=== PATIENT | female | born 1945 | race Caucasian/White ===

== ENCOUNTER 2017-07-24 18:30 | Emergency (ER) | payer MEDICARE, SELFPAY ==
[2017-07-24] VITALS (8 sets, daily range): BP systolic 104–140; BP diastolic 65–109; PULSE 102–116; RESP 16–20; TEMP 37.2–37.3; O2SAT 91–97; BMI 38.7
--- NOTE | 2017-07-24 18:40 | NURSING ---
RN CALLED FOR EKG, PULLED OLD EKG'S FOR
--- NOTE | 2017-07-24 18:49 | EKG12_ITS ---
Test Reason : CP Blood Pressure : / mmHG Vent. Rate : 111 BPM Atrial Rate : 111 BPM P-R Int : 144 ms QRS Dur : 088 ms QT Int : 314 ms P-R-T Axes : 073 -56 054 degrees QTc Int : 427 ms Sinus tachycardia Left anterior fascicular block Abnormal ECG Confirmed by CINTHIA VALLE, SHELDON ([id number]), assignment editor MAURIZIO TIRADO ([id number]) on 07/28/2017 3:24:54 PM Referred By: ANNMARIE Confirmed By:SHELDON VICENTE MD
--- NOTE | 2017-07-24 18:55 | RAD_ITS ---
STUDY: X-RAY CHEST REASON FOR EXAM: Female, 72 years old. Chest pain TECHNIQUE: Frontal and lateral view of the chest. COMPARISON: None. FINDINGS: Spinal fixation hardware visualized in the cervical spine. The lungs are clear and expanded. There is no demonstrated pleural abnormality. Normal size heart. Normal mediastinum and martina. Normal visualized pulmonary arteries. Normal visualized aortic arch and descending thoracic aorta. There are diffuse degenerative changes of the visualized thoracic spine. Normal visualized ribs, clavicles, and shoulders. There is no demonstrated abnormality of the visualized soft tissue structures of the upper abdomen. RAD/Chest PA and Lateral IMPRESSION: There are no acute findings in the chest. Electronically Signed: Celestine Mancuso MD at 19:25 EST , Service support ,
[2017-07-24] MEDS: MethylPREDNISolone 125 MG/2 ML Vial IV (19:01)
[2017-07-24] MEDS: 0.9% Normal Saline 1,000 ML 150 ML IV (19:01)
[2017-07-24] MEDS: Ipratropium/Albuterol Sulfate 3 ML AMPUL.NEB INHALATION (19:23)
[2017-07-24] MEDS: Albuterol 2.5 MG/3 ML VIAL.NEB. INHALATION ×2 (19:26)
[2017-07-24 19:31] LABS: Absolute Neutrophil Count 10.5 X10^3/uL (2.0-7.7); Basophil# 0.03 X10^3/uL; Basophil% 0.2 % (0-1); Eosinophil# 0.06 X10^3/uL; Eosinophils% 0.4 % (0-5); Hematocrit 40.3 % (37-47); Hemoglobin 12.7 g/dl (12.0-15.0); Lymphocyte % 21.1 % (19-41); Mean Corp Hgb Conc 31.5 g/gl (32-36); Mean Corpuscular Hgb 28.4 pg (27.0-32.0); Mean Corpuscular Volume 90.2 fL (81-99); Mean Platelet Vol. 9.7 fl (6.2-12.0); Monocyte# 1.01 X10^3/uL; Monocyte% 6.9 % (0-10); Neutrophil # 10.49 X10^3/uL (2.7-7.7); Neutrophil % 71.2 % (47-70); Platelet Count 255 K/mm3 (150-450); RBC Distribution Width CV 14.8 % (11.6-14.6); RBC Distribution Width SD 49.2 fl (35.1-43.9); Red Blood Count 4.47 M/mm3 (4.2-5.4); White Blood Count 14.7 K/mm3 (4.4-11.0)
[2017-07-24 19:36] LABS: POSITIVE COUNT NO; POSITIVE DIFFERENTIAL NO; POSITIVE MORPHOLOGY NO
[2017-07-24 19:40] LABS: International Normalized Ratio 1.1; Prothrombin Time (Protime)PT. 13.5 SECONDS (11.7-14.9)
[2017-07-24 19:41] LABS: Partial Thromboplast Time 34.3 Seconds (24.1-36.2)
[2017-07-24 19:50] LABS: ALB/GLOB Ratio 0.7 RATIO (0.9-2.4); AST(SGOT) 20 U/L (15-37); Alanine Aminotransfer ALT/SGPT 27 U/L (13-56); Albumin, Serum 3.4 g/dL (3.2-5.0); Alkaline Phosphatase 65 U/L (45-117); Anion Gap 10 (5-15); BUN 24 mg/dL (7-18); BUN/Creat Ratio 14.7 RATIO (10-20); Chloride 99 mmol/L (98-107); Creatinine, Serum 1.63 mg/dL (0.55-1.02); EST Glomerular Filtration Rate 33 mL/min (>60); Est Glom Filt Rate - Afr Amer 40 mL/min (>60); Estimated Creatinine Clearance 27.73 ml/min; Globulin 4.7 g/dL (2.2-4.2); Glucose 129 mg/dL (70-110); Potassium 4.3 mmol/L (3.5-5.1); Protein, Total 8.1 g/dL (6.4-8.2); Sodium Level 134 mmol/L (136-145)
[2017-07-24 20:12] LABS: Lactic Acid 1.1 mmol/L (0.4-2.0)
--- NOTE | 2017-07-24 20:50 | ED.RN ---
ATTEMPTED TO COLLECT URINE. PT UNABLE TO GO. 2034
--- NOTE | 2017-07-24 21:07 | ED.VISSUMM ---
- ER Visit Summary Date of Service: 07/24/17 Chief Complaint: Chest pain and cough History of Present Illness: The patient is a 72 F who states for the past 3 days she has had a developing cough with sputum production. She feels that her chest is very sore especially when she coughs and pushes on it. She notes a fever of 102 at home. She does not wear home oxygen. She notes headache and myalgias. She has a history of chronic kidney disease obesity diabetes COPD. She does not have aerosols at home but uses a rescue inhaler and is in fact out of that. She is no longer smoking. Physical Examination: Afebrile heart rate 116 respirations 18 pulse ox 97% on room air Gen: Well-nourished well-developed Head: Normocephalic atraumatic Eyes: Perrl EOMI ENT: TMs clear no rhinorrhea moist mucous membranes Neck: Supple no lymphadenopathy no JVD nontender CVS: Regular rate rhythm no murmurs normal S1-S2 Respiratory: No distress rhonchi and expiratory wheezing bilaterally anterior chest wall tenderness to palpation. Abdomen: Soft nontender nondistended normal bowel sounds no masses Back: Nontender Extremity: Nontender no edema Skin: Normal color no rash Neuro: alert orientated ?3 CN II-XII intact normal strength sensation reflexes gait cerebellar Psych: Normal affect normal mood Test Results: EKG sinus at a rate of 114. White count 14.7. Normal lactate. Chest x-ray shows no definite infiltrate. Influenza negative. Emergency Department Course and Treatment: She received breathing treatments and Solu-Medrol. Repeat examination shows the patient to be ambulating without difficulty. Her lung sounds are clear. I am going to give her a dose of azithromycin. Also would be discharging her with albuterol MDI, azithromycin as well as burst prednisone. Return if worsening or concerns. Patient is comfortable with this plan. Impression: 1. COPD exacerbation 2. Chest wall pain This note was generated with [employer] dictation software. It may contain incorrect words, spelling, and punctuation that were not noted in review of the chart prior to signing ED Disposition - Plan for ED Patient: Disposition: Home or Assisted Living Chief Complaint: Shortness of Breath Instructions: ED COPD Flare, ED Strain Chest Wall Prescriptions: Azithromycin [Zithromax] 250 mg PO DAILY #4 tab Prednisone [Deltasone] 60 mg PO DAILY #15 tab Referrals: Kyara Hendrickson, DO [Primary Care Provider] - 3-5 Days if not improving Additional Instructions: Use the inhaler 2-3 puffs every 2-3 hours. Take entire course of prednisone as well as azithromycin If your worsening or have concerns please return to the emergency department.
[2017-07-24] MEDS: Azithromycin 250 MG Tablet 500 MG PO (21:13)
== END 2017-07-24 21:23 | disposition home or self-care (01) ==
PROVIDERS: Emergency Provider Emergency Medicine
DX: J44.1 Chronic obstructive pulmonary disease with (acute) exacerbation (principal); R07.89 Other chest pain; E11.22 Type 2 diabetes mellitus with diabetic chronic kidney disease; N18.9 Chronic kidney disease, unspecified; K21.9 Gastro-esophageal reflux disease without esophagitis; E66.9 Obesity, unspecified; Z87.891 Personal history of nicotine dependence
CPT/HCPCS: 71046; 80053; 83605; 84484; 85025; 85610; 85730; 87040; 87804; 93005; 94640; 96361; 96374; 99284; J7030; A4216

== ENCOUNTER 2018-07-30 03:58 | Inpatient (IN) | payer MEDICARE, SELFPAY ==
[2017-07-24 18:31] VITALS: BMI 38.7
[2018-07-30] VITALS (17 sets, daily range): BP systolic 99–137; BP diastolic 52–87; PULSE 85–129; RESP 18–29; TEMP 36.8–37.1; O2SAT 88–96; BMI 39.9; BMI 39.6; BMI 39.7
--- NOTE | 2018-07-30 04:18 | EKG12_ITS ---
Test Reason : CP Blood Pressure : / mmHG Vent. Rate : 122 BPM Atrial Rate : 122 BPM P-R Int : 146 ms QRS Dur : 082 ms QT Int : 302 ms P-R-T Axes : 072 -63 056 degrees QTc Int : 430 ms Sinus tachycardia Left anterior fascicular block Abnormal ECG Confirmed by CINTHIA VALLE, SHELDON ([id number]), medical editor MAURIZIO TIRADO ([id number]) on 08/03/2018 10:26:04 AM Referred By: LORRI Confirmed By:SHELDON VICENTE MD
--- NOTE | 2018-07-30 04:18 | RAD_ITS ---
STUDY: X-RAY CHEST REASON FOR EXAM: Female, 73 years old. Chest pain. TECHNIQUE: PA and lateral chest. COMPARISON: July 24, 2017. March 17, 2017. FINDINGS: There is now a 4.1 x 1.5 cm right suprahilar nodular density. This could represent pneumonia, however a developing mass cannot be excluded. No effusions. No pneumothorax. Normal size heart. Normal mediastinum and martina. Normal visualized pulmonary arteries. Normal visualized aortic arch and descending thoracic aorta. Normal visualized thoracic spine. Normal visualized ribs, clavicles, and shoulders. Postoperative changes of lower cervical fusion. There is no demonstrated abnormality of the visualized soft tissue structures of the upper abdomen. RAD/Chest PA and Lateral IMPRESSION: Right upper lobe density which has developed since the prior exam. Consider CT chest to exclude a mass. Electronically Signed: Martin Coughlin MD at 4:44 EST , Service support ,
--- NOTE | 2018-07-30 04:20 | ED.VISSUMM ---
- ER Visit Summary Date of Service: 07/30/18 Chief Complaint: [] Chest pain History of Present Illness: The patient is a 73 F [] presents with chest pain since yesterday at 9 PM approximately 7 hours ago. It came on at rest. It has been continuous stabbing pain located in the substernal right parasternal region. Current severity is moderate. Worsened by coughing. She has a mild cough just today. She has nausea earlier today with 3 episodes of emesis after the pain came on. She does not from nausea currently. She has a chronic shortness of breath secondary to COPD. She is not on home oxygen. No home treatment. Last stress test was 20 years ago. No history of coronary artery disease. She denies hypertension or high cholesterol or family history of cardiovascular risk factors. She does have diabetes and she quit smoking 10 years ago. She denies any pulmonary embolism or dissection risk factors. She denies a history of hypertension. Physical Examination: Vital signs reviewed and heart rate 129. Pulse ox 88% on room air. General: Well-nourished well-developed Head: Normocephalic atraumatic Eyes: Pupils equal round and reactive to light extraocular movements intact ENT: TMs clear no hemotympanum no trauma Neck: Nontender full range of motion Cardiovascular: Regular cardia with normal rhythm no murmurs normal S1-S2 Respiratory: No distress clear to auscultation bilaterally chest nontender Abdomen: Soft nontender nondistended normal bowel sounds no masses Back: Nontender no CVA tenderness Extremities: Nontender active range of motion ?4 extremities no trauma Skin: Normal color no trauma Neuro alert oriented cranial nerves II through XII intact normal strength sensation reflexes Test Results: [] Emergency Department Course and Treatment: [] EKG obtained shows sinus tachycardia at a rate of 122. No STEMI pattern or acute ischemia noted. Lab work chest x-ray obtained. Patient given aspirin and oral nitroglycerin. She did feel better after treatment. She was also given IV fluid bolus. White count is 21.4. Potassium is 5.2. Creatinine is 1.2. Liver function tests normal. Lipase normal. Troponin negative. Chest x-ray shows right upper lobe density in the suprahilar region. CTA of the chest done to rule out pulmonary embolism. She has right upper lobe and right lower lobe pneumonias. Mild mediastinal lymphadenopathy noted. Will be discussed with the hospitalist. She does have a pulse ox of 88% on room air requiring nasal cannula oxygen. She will be started on antibiotics. She will be admitted. Treatment Plan: [] Disposition: [] Impression: [] Sepsis secondary to community-acquired pneumonia Hypoxia secondary to pneumonia This note was generated with [employer] dictation software. It may contain incorrect words, spelling, and punctuation that were not noted in review of the chart prior to signing ED Disposition - Plan for ED Patient: Referrals: Kyara Hendrickson DO [Primary Care Provider] -
[2018-07-30] MEDS: Aspirin 81 MG TAB.CHEW 324 MG PO (04:38)
[2018-07-30 05:01] LABS: Absolute Lymphocyte Count 2.31 X10^3/ul (0.83-4.51); Absolute Neutrophil Count 17.4 X10^3/uL (2.0-7.7); Basophil# 0.05 X10^3/uL; Basophil% 0.2 % (0-1); Eosinophil# 0.08 X10^3/uL; Eosinophils% 0.4 % (0-5); Hematocrit 44.9 % (37-47); Hemoglobin 13.6 g/dl (12.0-15.0); Lymphocyte # 2.31 X10^3/ul (4.0); Lymphocyte % 10.8 % (19-41); Mean Corp Hgb Conc 30.3 g/gl (32-36); Mean Corpuscular Hgb 27.8 pg (27.0-32.0); Mean Corpuscular Volume 91.8 fL (81-99); Mean Platelet Vol. 10.1 fl (6.2-12.0); Monocyte# 1.47 X10^3/uL; Monocyte% 6.9 % (0-10); Neutrophil # 17.43 X10^3/uL (2.7-7.7); Neutrophil % 81.4 % (47-70); Platelet Count 298 K/mm3 (150-450); RBC Distribution Width CV 14.9 % (11.6-14.6); Red Blood Count 4.89 M/mm3 (4.2-5.4); White Blood Count 21.4 K/mm3 (4.4-11.0)
[2018-07-30 05:02] LABS: POSITIVE COUNT NO; POSITIVE DIFFERENTIAL NO; POSITIVE MORPHOLOGY NO
[2018-07-30 05:13] LABS: AST(SGOT) 25 U/L (15-37); Alanine Aminotransfer ALT/SGPT 28 U/L (13-56); Albumin, Serum 3.6 g/dL (3.2-5.0); Alkaline Phosphatase 87 U/L (45-117); Anion Gap 10 (5-15); BUN 25 mg/dL (7-18); BUN/Creat Ratio 20.5 RATIO (10-20); Bilirubin, Direct 0.11 mg/dL (0.00-0.30); Chloride 105 mmol/L (98-107); Creatinine, Serum 1.22 mg/dL (0.55-1.02); EST Glomerular Filtration Rate 46 mL/min (>60); Est Glom Filt Rate - Afr Amer 56 mL/min (>60); Estimated Creatinine Clearance 36.52 ml/min; Globulin 4.6 g/dL (2.2-4.2); Glucose 133 mg/dL (74-106); Lipase 383 U/L (73-393); Potassium 5.2 mmol/L (3.5-5.1); Protein, Total 8.2 g/dL (6.4-8.2); Sodium Level 139 mmol/L (136-145)
--- NOTE | 2018-07-30 05:20 | CT_ITS ---
STUDY: CTA CHEST REASON FOR EXAM: Female, 73 years old. Right-sided chest pain. Abnormal chest x-ray. RADIATION DOSAGE (If Supplied By Facility): CTDIvol = ( 16.72 ) mGy, DLP = ( 768.67 ) mGycm TECHNIQUE: The examination was performed with the intravenous administration of 100ml ml of Isovue 370 contrast material. Post-processing of the angiographic images was performed, with multiplanar reformation and 3D reconstruction. Individualized dose optimization techniques were used for this CT. COMPARISON: None. FINDINGS: Normal enhancement of the main pulmonary artery and right and left pulmonary arteries. Normal enhancement of the bilateral peripheral pulmonary arteries. There is no demonstrated pulmonary embolism. Normal thoracic aorta and visualized great vessels. There is no demonstrated aortic dissection. Normal heart and pericardium. Scattered mildly enlarged mediastinal lymph nodes the largest prevascular measuring 2.0 x 0.7 cm and right paratracheal measuring 1.1 x 1.0 cm. Normal hilar regions. Normal visualized trachea and bronchi. The lungs are well expanded. Multiple patchy airspace opacities throughout the right upper lobe and to a much lesser extent superior segment right lower lobe. No effusions. No pneumothorax. Normal chest wall structures. Degenerative changes of the thoracic spine. Normal visualized upper abdomen. CT/CTA Chest W/WO Contrast IMPRESSION: Right upper lobe and to a much lesser extent right lower lobe pneumonias. Recommend continued follow-up to resolution. Mild mediastinal lymphadenopathy. No pulmonary embolus or thoracic aortic dissection. Electronically Signed: Martin Coughlin MD at 6:19 EST , Service support ,
[2018-07-30] MEDS: 0.9% Normal Saline 1,000 ML 1000 ML IV (05:25)
[2018-07-30] MEDS: levoFLOXacin IV 750 MG/150 ML BAG 100 MG IV (07:23)
[2018-07-30 08:06] LABS: Lactic Acid 1.1 mmol/L (0.4-2.0)
[2018-07-30 08:53] LABS: Color, Urine Yellow (Yellow); Glucose, Dipstick Normal (Normal); Ketone-Dipstick Negative (Negative); Leukocyte Esterase-Dipstick 25 /ul (Negative); Nitrite-Dipstick Negative (Negative); Occult Blood-Urine Negative /ul (Negative); Protein-Dipstick Negative (Negative); Specific Gravity, Urine 1.005 (1.002-1.030); Urine Bilirubin Dipstick Negative (Negative); Urine Clarity Clear (Clear); Urine Urobilinogen Normal (Normal); Urine pH 6.5 (5.0 - 8.0)
--- NOTE | 2018-07-30 09:19 | PCM.HP.STD ---
Problem List (1) CKD (chronic kidney disease) stage 3, GFR 30-59 ml/min Status: Chronic (2) History of tobacco use Status: Chronic (3) Obesity (BMI 30-39.9) Status: Chronic (4) GERD (gastroesophageal reflux disease) Status: Chronic Qualifiers: (5) Diabetes mellitus, type II Status: Chronic Qualifiers: (6) COPD (chronic obstructive pulmonary disease) Status: Chronic Qualifiers: History of Present Illness Date of Admission: 07/30/18 Chief Complaint: Chest pain. The patient is a 73 year old F with past medical history as mentioned above presented to the emergency room because of chest pain and productive cough. Her symptoms started last night around 9 PM, pain started at rest, retrosternal chest pain, sharp pain, 8-9 out of 10 in severity, aggravated by coughing and taking a deep breath, associated with productive cough with small amount of green sputum as well as subjective fever and chills. Denied associated shortness of breath, dizziness, lightheadedness, syncope or presyncope. In the emergency department, she was afebrile, tachycardic, blood pressure was stable, pulse ox was 88% on room air upon arrival. Routine blood work was remarkable for leukocytosis with neutrophilia, potassium of 5.2, creatinine of 1.22 which is chronic. Lactic acid was normal. EKG revealed sinus tachycardia and left anterior fascicular block, no acute changes compared to EKG from July,. LFT and lipase were normal. Troponin was negative. Chest x-ray revealed very faint right upper lobe density. CTA chest done and showed no evidence of PE or dissection, revealed right upper lobe consolidation and minimal right lower lobe infiltrate. She is being admitted for right lung community-acquired pneumonia with sepsis and atypical chest pain. Past Medical History Past Medical History (Chronic Problems): Chronic Problems CKD (chronic kidney disease) stage 3, GFR 30-59 ml/min (Chronic) History of tobacco use (Chronic) Obesity (BMI 30-39.9) (Chronic) GERD (gastroesophageal reflux disease) (Chronic) Diabetes mellitus, type II (Chronic) COPD (chronic obstructive pulmonary disease) (Chronic) Allergies acetaminophen [From Vicodin] Adverse Reaction (Verified 07/30/18 04:03) Other codeine Adverse Reaction (Verified 07/30/18 04:03) Other hydrocodone [From Vicodin] Adverse Reaction (Verified 07/30/18 04:03) Other Home Medications: Ambulatory Orders Medication Instructions Recorded Fluticasone/Salmeterol [Advair 1 each IH BID 07/24/17 500-50 Diskus] Lisinopril [Zestril] 5 mg PO DAILY 07/24/17 Omeprazole 20 mg PO BID 07/24/17 Cyclobenzaprine [Flexeril] 10 mg PO TID PRN PRN 07/30/18 Metformin HCl [Metformin ER 1,000 mg PO QHS 07/30/18 Osmotic] Simvastatin 10 mg PO QHS 07/30/18 Surgical History: - - Tonsillectomy, hysterectomy, CSF leak repair, neck surgery. Psychiatric History: No pertinent psych hx [employer] WORK[employer] History: No pertinent [employer] WORK[employer] history Lives: Spouse/ Significant Other Smoking Status: Former smoker Alcohol: Rare Drugs: None - *Family History Maternal History Items: Diabetes, Heart Disease, Hypertension Paternal History Items: No pertinent history Review of Systems Constitutional: Reports: Chills, Fever, Weakness. Denies: Anorexia Eyes: Denies: Blurred vision, Double vision, Drainage, Redness HEENT: Denies: Difficulty Hearing, Ear Pain, Eye Pain, Nasal Congestion, Sore Throat Cardiovascular: Reports: Chest Pain. Denies: Chest Pressure, Chest Tightness, Edema, Heaviness, Light Headedness, Orthopnea, Palpitations, Paroxysmal Noc. Dyspnea, Syncope Respiratory: Reports: Cough, Pleuritic Pain, Shortness of Breath, Sputum production. Denies: Wheezing Gastrointestinal: Denies: Abdominal Pain, Constipation, Diarrhea, Nausea, Vomiting Genitourinary: Denies: Dysuria, Frequency, Hematuria Musculoskeletal: Denies: Arm Pain, Back Pain, Foot Pain Skin: Denies: Dryness, Rash Neurological: Denies: Balance problems, Double vision, Change in Speech, Slurred speech, Confusion, Headaches, Incoordination, Numbness Psychiatric: Denies: Anxiety, Depression Endocrine: Denies: Change in Body Habitus, Polydipsia VTE Information - Inpt Only VTE Present on Admission: No VTE Mechan Device Prophylaxis: None VTE Pharm Prophylaxis ordered?: Yes - Physical Exam General: Alert, Oriented x3, Cooperative, No apparent distress HEENT: Atraumatic, PERRLA, EOMI, Normocephalic Oral: Moist Mucosa, No Gingival or Mucosal Lesions/ Ulcerations Neck: Supple, No JVD, Negative Carotid Bruits, Trachea Midline, Thyroid Normal Size and Texture Lungs: Clear to auscultation, No rhonchi, No wheeze, No rales, Diminished, - - Decreased breath sounds mainly on the right lung, otherwise clear. Cardiovascular: Regular rate, Regular Rhythm, Normal S1, Normal S2, No murmurs, PMI Normal, Tachycardic Abdomen: Bowel Sounds Present, Soft, Non Tender, Non-Distended, No Hepato-splenomegaly Extremities: No clubbing, No cyanosis, No edema Skin: No rashes, No breakdown Musculoskeletal: No Tenderness to Palpation of Joints or Extremities Lymphatic: No Cervical, Supraclavicular, or Inguinal Adenopathy Neurological: Cranial nerves II-XII grossly intact, Motor Exam 5/5 strength throughout Psych/Mental Status: Normal Affect, Appropriate, Alert and oriented to time, place, person, mood and affect Vital Signs Temp Pulse Resp BP Pulse Ox 98.7 F 104 H 21 H 99/57 L 95 07/30/18 03:59 07/30/18 07:06 07/30/18 07:06 07/30/18 07:06 07/30/18 07:06 Oxygen Flow Rate (L/min) 2 Oxygen Delivery Method Room Air Weight: 231 lb 5 oz Body Mass Index (BMI) 39.6 Microbiology Past 72 Hours 07/30/18 08:35 Streptococcus pneumoniae Antigen (M - Final Urine, Clean Catch 07/30/18 08:35 Legionella Antigen - Final Urine, Clean Catch Laboratory Tests Past 24 Hrs 07/30/18 07/30/18 07/30/18 04:02 04:02 07:30 WBC 21.4 H RBC 4.89 Hgb 13.6 Hct 44.9 MCV 91.8 MCH 27.8 MCHC 30.3 L RDW 14.9 H RDW Differential 49.0 H Plt Count 298 MPV 10.1 Immature Gran % (Auto) 0.300 Neut % (Auto) 81.4 H Lymph % (Auto) 10.8 L George % (Auto) 6.9 Eos % (Auto) 0.4 Baso % (Auto) 0.2 Absolute Neuts (auto) 17.4 H Absolute Lymphs (auto) 2.31 Total Counted Not Reportable Sodium 139 Potassium 5.2 H Chloride 105 Carbon Dioxide 24.0 Anion Gap 10 BUN 25 H Creatinine 1.22 H Estim Creat Clear Calc 36.52 Est GFR (MDRD) Af Amer 56 L Est GFR (MDRD) Non-Af 46 L BUN/Creatinine Ratio 20.5 H Glucose 133 H Lactic Acid 1.1 Calcium 9.0 Total Bilirubin 0.50 Direct Bilirubin 0.11 AST 25 ALT 28 Alkaline Phosphatase 87 Troponin I < 0.015 Total Protein 8.2 Albumin 3.6 Globulin 4.6 H Lipase 383 Urine Color Urine Clarity Urine pH Ur Specific [place] Urine Protein Urine Glucose (UA) Urine Ketones Urine Occult Blood Urine Nitrite Urine Bilirubin Urine Urobilinogen Ur Leukocyte Esterase 07/30/18 08:35 WBC RBC Hgb Hct MCV MCH MCHC RDW RDW Differential Plt Count MPV Immature Gran % (Auto) Neut % (Auto) Lymph % (Auto) George % (Auto) Eos % (Auto) Baso % (Auto) Absolute Neuts (auto) Absolute Lymphs (auto) Total Counted Sodium Potassium Chloride Carbon Dioxide Anion Gap BUN Creatinine Estim Creat Clear Calc Est GFR (MDRD) Af Amer Est GFR (MDRD) Non-Af BUN/Creatinine Ratio Glucose Lactic Acid Calcium Total Bilirubin Direct Bilirubin AST ALT Alkaline Phosphatase Troponin I Total Protein Albumin Globulin Lipase Urine Color Yellow Urine Clarity Clear Urine pH 6.5 Ur Specific [place] 1.005 Urine Protein Negative Urine Glucose (UA) Normal Urine Ketones Negative Urine Occult Blood Negative Urine Nitrite Negative Urine Bilirubin Negative Urine Urobilinogen Normal Ur Leukocyte Esterase 25 H Clinical Impression(s) from Imaging Studies Chest X-Ray 07/30/18 04:18 IMPRESSION: Right upper lobe density which has developed since the prior exam. Consider CT chest to exclude a mass. Electronically Signed: Martin Coughlin MD at 4:44 EST , Service support , Chest CTA 07/30/18 05:20 IMPRESSION: Right upper lobe and to a much lesser extent right lower lobe pneumonias. Recommend continued follow-up to resolution. Mild mediastinal lymphadenopathy. No pulmonary embolus or thoracic aortic dissection. Electronically Signed: Martin Coughlin MD at 6:19 EST , Service support , ADDENDUM: 07/30/18 0633 Assessment/Plan This is a 73 years old female patient presented to the ED because of chest pain which is probably pleuritic with productive cough and subjective fever and chills and she was found to have a right upper lobe consolidation and probable left lower lobe infiltrate consistent with community-acquired pneumonia with sepsis and she is being admitted for treatment. #1 right lung community-acquired pneumonia/sepsis: Chest x-ray as well as CTA chest reviewed as above. Patient is tachycardic, initially was hypoxic and she does have leukocytosis. Her lactic acid is normal. After arrival to the floor, pulse ox improved and she has been maintaining her pulse ox on room air. Plan: Admit to [facility] floor with telemetry, gentle IV fluids for hydration, blood culture, sputum culture, urinalysis, urine culture, start IV Levaquin for pneumonia, pneumococcal and Legionella antigen, bronchodilators, Tylenol as needed, Mucinex twice daily, repeat CBC and BMP tomorrow morning, chest physiotherapy, incentive spirometer, PT OT evaluation and treatment. #2 chest pain: Likely pleuritic chest pain. EKG revealed sinus tachycardia, no acute ischemic changes. Troponin is negative. She had no cardiac history. Plan: Cardiac monitoring, serial cardiac enzymes, repeat EKG tomorrow morning. At this time, no indication for further cardiac workup. #3 type 2 diabetes mellitus: Blood sugar stable, plan for ADA diet, Accu-Cheks, insulin sliding scale, continue metformin. #4 COPD: Initially, she was hypoxic but improved. Plan for DuoNeb every 6 hours, albuterol as needed, oxygen if needed, chest physiotherapy. #5 stage III chronic kidney disease: Baseline creatinine has been around 1.3-1.6 mg/dL. Admission creatinine is 1.22, stable at baseline. #6 GERD: Continue PPI. #7 DVT prophylaxis: Subcu Lovenox. This note was generated with [employer] dictation software. It may contain incorrect words, spelling, and punctuation that were not noted in checking the note before signing. Code Visit Inpatient E&M: 08124 Init Hosp L3
--- NOTE | 2018-07-30 09:24 | HP.PCM_ITS ---
Problem List (1) CKD (chronic kidney disease) stage 3, GFR 30-59 ml/min Status: Chronic (2) History of tobacco use Status: Chronic (3) Obesity (BMI 30-39.9) Status: Chronic (4) GERD (gastroesophageal reflux disease) Status: Chronic Qualifiers: (5) Diabetes mellitus, type II Status: Chronic Qualifiers: (6) COPD (chronic obstructive pulmonary disease) Status: Chronic Qualifiers: History of Present Illness Date of Admission: 07/30/18 Chief Complaint: Chest pain. The patient is a 73 year old F with past medical history as mentioned above presented to the emergency room because of chest pain and productive cough. Her symptoms started last night around 9 PM, pain started at rest, retrosternal chest pain, sharp pain, 8-9 out of 10 in severity, aggravated by coughing and taking a deep breath, associated with productive cough with small amount of green sputum as well as subjective fever and chills. Denied associated shortness of breath, dizziness, lightheadedness, syncope or presyncope. In the emergency department, she was afebrile, tachycardic, blood pressure was stable, pulse ox was 88% on room air upon arrival. Routine blood work was remarkable for leukocytosis with neutrophilia, potassium of 5.2, creatinine of 1.22 which is chronic. Lactic acid was normal. EKG revealed sinus tachycardia and left anterior fascicular block, no acute changes compared to EKG from July,. LFT and lipase were normal. Troponin was negative. Chest x-ray revealed very faint right upper lobe density. CTA chest done and showed no evidence of PE or dissection, revealed right upper lobe consolidation and minimal right lower lobe infiltrate. She is being admitted for right lung community-acquired pneumonia with sepsis and atypical chest pain. Past Medical History Past Medical History (Chronic Problems): Chronic Problems CKD (chronic kidney disease) stage 3, GFR 30-59 ml/min (Chronic) History of tobacco use (Chronic) Obesity (BMI 30-39.9) (Chronic) GERD (gastroesophageal reflux disease) (Chronic) Diabetes mellitus, type II (Chronic) COPD (chronic obstructive pulmonary disease) (Chronic) Allergies acetaminophen [From Vicodin] Adverse Reaction (Verified 07/30/18 04:03) Other codeine Adverse Reaction (Verified 07/30/18 04:03) Other hydrocodone [From Vicodin] Adverse Reaction (Verified 07/30/18 04:03) Other Home Medications: Ambulatory Orders Medication Instructions Recorded Fluticasone/Salmeterol [Advair 1 each IH BID 07/24/17 500-50 Diskus] Lisinopril [Zestril] 5 mg PO DAILY 07/24/17 Omeprazole 20 mg PO BID 07/24/17 Cyclobenzaprine [Flexeril] 10 mg PO TID PRN PRN 07/30/18 Metformin HCl [Metformin ER 1,000 mg PO QHS 07/30/18 Osmotic] Simvastatin 10 mg PO QHS 07/30/18 Surgical History: - - Tonsillectomy, hysterectomy, CSF leak repair, neck surgery. Psychiatric History: No pertinent psych hx [employer] History: No pertinent [employer] history Lives: Spouse/ Significant Other Smoking Status: Former smoker Alcohol: Rare Drugs: None - *Family History Maternal History Items: Diabetes, Heart Disease, Hypertension Paternal History Items: No pertinent history Review of Systems Constitutional: Reports: Chills, Fever, Weakness. Denies: Anorexia Eyes: Denies: Blurred vision, Double vision, Drainage, Redness HEENT: Denies: Difficulty Hearing, Ear Pain, Eye Pain, Nasal Congestion, Sore Throat Cardiovascular: Reports: Chest Pain. Denies: Chest Pressure, Chest Tightness, Edema, Heaviness, Light Headedness, Orthopnea, Palpitations, Paroxysmal Noc. Dyspnea, Syncope Respiratory: Reports: Cough, Pleuritic Pain, Shortness of Breath, Sputum production. Denies: Wheezing Gastrointestinal: Denies: Abdominal Pain, Constipation, Diarrhea, Nausea, Vomiting Genitourinary: Denies: Dysuria, Frequency, Hematuria Musculoskeletal: Denies: Arm Pain, Back Pain, Foot Pain Skin: Denies: Dryness, Rash Neurological: Denies: Balance problems, Double vision, Change in Speech, Slurred speech, Confusion, Headaches, Incoordination, Numbness Psychiatric: Denies: Anxiety, Depression Endocrine: Denies: Change in Body Habitus, Polydipsia VTE Information - Inpt Only VTE Present on Admission: No VTE Mechan Device Prophylaxis: None VTE Pharm Prophylaxis ordered?: Yes - Physical Exam General: Alert, Oriented x3, Cooperative, No apparent distress HEENT: Atraumatic, PERRLA, EOMI, Normocephalic Oral: Moist Mucosa, No Gingival or Mucosal Lesions/ Ulcerations Neck: Supple, No JVD, Negative Carotid Bruits, Trachea Midline, Thyroid Normal Size and Texture Lungs: Clear to auscultation, No rhonchi, No wheeze, No rales, Diminished, - - Decreased breath sounds mainly on the right lung, otherwise clear. Cardiovascular: Regular rate, Regular Rhythm, Normal S1, Normal S2, No murmurs, PMI Normal, Tachycardic Abdomen: Bowel Sounds Present, Soft, Non Tender, Non-Distended, No Hepato- splenomegaly Extremities: No clubbing, No cyanosis, No edema Skin: No rashes, No breakdown Musculoskeletal: No Tenderness to Palpation of Joints or Extremities Lymphatic: No Cervical, Supraclavicular, or Inguinal Adenopathy Neurological: Cranial nerves II-XII grossly intact, Motor Exam 5/5 strength throughout Psych/Mental Status: Normal Affect, Appropriate, Alert and oriented to time, place, person, mood and affect Vital Signs Temp Pulse Resp BP Pulse Ox 98.7 F 104 H 21 H 99/57 L 95 07/30/18 03:59 07/30/18 07:06 07/30/18 07:06 07/30/18 07:06 07/30/18 07:06 Oxygen Flow Rate (L/min) 2 Oxygen Delivery Method Room Air Weight: 231 lb 5 oz Body Mass Index (BMI) 39.6 Microbiology Past 72 Hours 07/30/18 08:35 Streptococcus pneumoniae Antigen (M - Final Urine, Clean Catch 07/30/18 08:35 Legionella Antigen - Final Urine, Clean Catch Laboratory Tests Past 24 Hrs 07/30/18 07/30/18 07/30/18 04:02 04:02 07:30 WBC 21.4 H RBC 4.89 Hgb 13.6 Hct 44.9 MCV 91.8 MCH 27.8 MCHC 30.3 L RDW 14.9 H RDW Differential 49.0 H Plt Count 298 MPV 10.1 Immature Gran % (Auto) 0.300 Neut % (Auto) 81.4 H Lymph % (Auto) 10.8 L [place] % (Auto) 6.9 Eos % (Auto) 0.4 Baso % (Auto) 0.2 Absolute Neuts (auto) 17.4 H Absolute Lymphs (auto) 2.31 Total Counted Not Reportable Sodium 139 Potassium 5.2 H Chloride 105 Carbon Dioxide 24.0 Anion Gap 10 BUN 25 H Creatinine 1.22 H Estim Creat Clear Calc 36.52 Est GFR (MDRD) Af Amer 56 L Est GFR (MDRD) Non-Af 46 L BUN/Creatinine Ratio 20.5 H Glucose 133 H Lactic Acid 1.1 Calcium 9.0 Total Bilirubin 0.50 Direct Bilirubin 0.11 AST 25 ALT 28 Alkaline Phosphatase 87 Troponin I < 0.015 Total Protein 8.2 Albumin 3.6 Globulin 4.6 H Lipase 383 Urine Color Urine Clarity Urine pH Ur Specific [place] Urine Protein Urine Glucose (UA) Urine Ketones Urine Occult Blood Urine Nitrite Urine Bilirubin Urine Urobilinogen Ur Leukocyte Esterase 07/30/18 08:35 WBC RBC Hgb Hct MCV MCH MCHC RDW RDW Differential Plt Count MPV Immature Gran % (Auto) Neut % (Auto) Lymph % (Auto) [place] % (Auto) Eos % (Auto) Baso % (Auto) Absolute Neuts (auto) Absolute Lymphs (auto) Total Counted Sodium Potassium Chloride Carbon Dioxide Anion Gap BUN Creatinine Estim Creat Clear Calc Est GFR (MDRD) Af Amer Est GFR (MDRD) Non-Af BUN/Creatinine Ratio Glucose Lactic Acid Calcium Total Bilirubin Direct Bilirubin AST ALT Alkaline Phosphatase Troponin I Total Protein Albumin Globulin Lipase Urine Color Yellow Urine Clarity Clear Urine pH 6.5 Ur Specific [place] 1.005 Urine Protein Negative Urine Glucose (UA) Normal Urine Ketones Negative Urine Occult Blood Negative Urine Nitrite Negative Urine Bilirubin Negative Urine Urobilinogen Normal Ur Leukocyte Esterase 25 H Clinical Impression(s) from Imaging Studies Chest X-Ray 07/30/18 04:18 IMPRESSION: Right upper lobe density which has developed since the prior exam. Consider CT chest to exclude a mass. Electronically Signed: Martin Coughlin MD at 4:44 EST , Service support , Chest CTA 07/30/18 05:20 IMPRESSION: Right upper lobe and to a much lesser extent right lower lobe pneumonias. Recommend continued follow-up to resolution. Mild mediastinal lymphadenopathy. No pulmonary embolus or thoracic aortic dissection. Electronically Signed: Martin Coughlin MD at 6:19 EST , Service support , ADDENDUM: 07/30/18 0633 Assessment/Plan This is a 73 years old female patient presented to the ED because of chest pain which is probably pleuritic with productive cough and subjective fever and chills and she was found to have a right upper lobe consolidation and probable left lower lobe infiltrate consistent with community-acquired pneumonia with sepsis and she is being admitted for treatment. #1 right lung community-acquired pneumonia/sepsis: Chest x-ray as well as CTA chest reviewed as above. Patient is tachycardic, initially was hypoxic and she does have leukocytosis. Her lactic acid is normal. After arrival to the floor, pulse ox improved and she has been maintaining her pulse ox on room air. Plan: Admit to [facility] floor with telemetry, gentle IV fluids for hydration, blood culture, sputum culture, urinalysis, urine culture, start IV Levaquin for pneumonia, pneumococcal and Legionella antigen, bronchodilators, Tylenol as needed, Mucinex twice daily, repeat CBC and BMP tomorrow morning, chest physiotherapy, incentive spirometer, PT OT evaluation and treatment. #2 chest pain: Likely pleuritic chest pain. EKG revealed sinus tachycardia, no acute ischemic changes. Troponin is negative. She had no cardiac history. Plan: Cardiac monitoring, serial cardiac enzymes, repeat EKG tomorrow morning. At this time, no indication for further cardiac workup. #3 type 2 diabetes mellitus: Blood sugar stable, plan for ADA diet, Accu-Cheks, insulin sliding scale, continue metformin. #4 COPD: Initially, she was hypoxic but improved. Plan for DuoNeb every 6 hours, albuterol as needed, oxygen if needed, chest physiotherapy. #5 stage III chronic kidney disease: Baseline creatinine has been around 1.3-1.6 mg/dL. Admission creatinine is 1.22, stable at baseline. #6 GERD: Continue PPI. #7 DVT prophylaxis: Subcu Lovenox. This note was generated with [employer] dictation software. It may contain incorrect words, spelling, and punctuation that were not noted in checking the note before signing. Code Visit Inpatient E&M: 86579 Init Hosp L3
[2018-07-30] MEDS: guaiFENesin 1,200 MG Tablet 1200 MG PO ×2 (09:30→21:56)
[2018-07-30] MEDS: Enoxaparin 30 MG/0.3 ML Syringe SC (09:30)
[2018-07-30 09:41] LABS: Bedside Glucose 144 mg/dL (70-110)
[2018-07-30] MEDS: 0.9% Normal Saline 1,000 ML 100 ML IV ×2 (10:38→19:35)
[2018-07-30] MEDS: Ipratropium/Albuterol Sulfate 3 ML AMPUL.NEB INHALATION (13:01)
[2018-07-30] MEDS: Lisinopril 5 MG Tablet PO (13:30)
[2018-07-30] MEDS: Pantoprazole Sodium 20 MG Tablet PO ×2 (13:36→21:56)
[2018-07-30 14:32] LABS: Bedside Glucose 101 mg/dL (70-110)
[2018-07-30 18:27] LABS: Bedside Glucose 101 mg/dL (70-110)
[2018-07-30 21:56] LABS: Bedside Glucose 142 mg/dL (70-110)
[2018-07-30] MEDS: Acetaminophen 325 MG Tablet 650 MG PO (21:59)
[2018-07-31] VITALS (9 sets, daily range): BP systolic 110–132; BP diastolic 58–70; PULSE 81–96; RESP 16–20; TEMP 36.6–36.7; O2SAT 92–94
[2018-07-31] MEDS: 0.9% Normal Saline 1,000 ML 100 ML IV (05:32)
--- NOTE | 2018-07-31 05:55 | EKG12_ITS ---
Test Reason : AM EKG Blood Pressure : / mmHG Vent. Rate : 088 BPM Atrial Rate : 088 BPM P-R Int : 164 ms QRS Dur : 092 ms QT Int : 362 ms P-R-T Axes : 074 -52 037 degrees QTc Int : 438 ms Normal sinus rhythm Left anterior fascicular block Abnormal ECG When compared with ECG of 30-JUL-2018 04:03, MANUAL COMPARISON REQUIRED, DATA IS UNCONFIRMED Confirmed by CINTHIA VALLE, SHELDON ([id number]), editorial specialist MAURIZIO TIRADO ([id number]) on 08/06/2018 12:05:01 PM Referred By: EZIO Confirmed By:SHELDON VICENTE MD
[2018-07-31 06:57] LABS: Bedside Glucose 124 mg/dL (70-110)
[2018-07-31] MEDS: Magnesium Hydroxide 30 ML UDC PO (07:27)
[2018-07-31] MEDS: Ipratropium/Albuterol Sulfate 3 ML AMPUL.NEB INHALATION ×3 (07:35→19:25)
[2018-07-31] MEDS: Enoxaparin 30 MG/0.3 ML Syringe SC (08:06)
[2018-07-31] MEDS: guaiFENesin 1,200 MG Tablet 1200 MG PO ×2 (08:06→22:43)
[2018-07-31] MEDS: Lisinopril 5 MG Tablet PO (08:06)
[2018-07-31] MEDS: Pantoprazole Sodium 20 MG Tablet PO ×2 (08:06→22:52)
[2018-07-31 09:42] LABS: Absolute Lymphocyte Count 2.59 X10^3/ul (0.83-4.51); Absolute Neutrophil Count 7.9 X10^3/uL (2.0-7.7); Basophil# 0.04 X10^3/uL; Basophil% 0.4 % (0-1); Eosinophil# 0.28 X10^3/uL; Eosinophils% 2.5 % (0-5); Hemoglobin 11.7 g/dl (12.0-15.0); Lymphocyte # 2.59 X10^3/ul (4.0); Mean Corpuscular Volume 93.3 fL (81-99); Mean Platelet Vol. 9.5 fl (6.2-12.0); Monocyte# 0.47 X10^3/uL; Monocyte% 4.2 % (0-10); Neutrophil # 7.85 X10^3/uL (2.7-7.7); Neutrophil % 69.7 % (47-70); POSITIVE COUNT NO; POSITIVE DIFFERENTIAL NO; POSITIVE MORPHOLOGY NO; Platelet Count 226 K/mm3 (150-450); RBC Distribution Width SD 51.2 fl (35.1-43.9); Red Blood Count 4.18 M/mm3 (4.2-5.4); White Blood Count 11.3 K/mm3 (4.4-11.0)
[2018-07-31 09:51] LABS: Anion Gap 4 (5-15); BUN 16 mg/dL (7-18); BUN/Creat Ratio 14.8 RATIO (10-20); Calcium,Total 8.5 mg/dL (8.5-10.1); Chloride 108 mmol/L (98-107); Creatinine, Serum 1.08 mg/dL (0.55-1.02); EST Glomerular Filtration Rate 53 mL/min (>60); Est Glom Filt Rate - Afr Amer 64 mL/min (>60); Estimated Creatinine Clearance 41.26 ml/min; Glucose 200 mg/dL (74-106); Potassium 4.4 mmol/L (3.5-5.1); Sodium Level 138 mmol/L (136-145)
--- NOTE | 2018-07-31 10:02 | PCM.PROGNOTE ---
Subjective: Chief complaint: Follow-up after admission for right lung committee acquired pneumonia with sepsis and pleuritic chest pain. Patient seen and examined. No acute events overnight. Today, she is feeling better. She has no more chest pain. Still complaining of cough with green sputum. Denied significant shortness of breath. Denied fever or chills. Her vital signs are stable. - Physical Exam General: Alert, Oriented x3, Cooperative, No apparent distress HEENT: Atraumatic, PERRLA, EOMI, Normocephalic Oral: Moist Mucosa, No Gingival or Mucosal Lesions/ Ulcerations Neck: Supple, No JVD, Negative Carotid Bruits, Trachea Midline, Thyroid Normal Size and Texture Lungs: No wheeze, No rales, Diminished, Rhonchi, - - Decreased breath sounds on the right lung, occasional rhonchi. Cardiovascular: Regular rate, Regular Rhythm, Normal S1, Normal S2, PMI Normal Abdomen: Bowel Sounds Present, Soft, Non Tender, Non-Distended, No Hepato-splenomegaly Extremities: No clubbing, No cyanosis, No edema Skin: No rashes, No breakdown Lymphatic: No Cervical, Supraclavicular, or Inguinal Adenopathy Neurological: Cranial nerves II-XII grossly intact, Neuro grossly intact Psych/Mental Status: Normal Affect, Appropriate, Alert and oriented to time, place, person, mood and affect Vital Signs Temp Pulse Resp BP Pulse Ox 97.9 F 88 16 131/68 H 93 07/31/18 08:01 07/31/18 08:01 07/31/18 08:01 07/31/18 08:01 07/31/18 08:01 Oxygen Flow Rate (L/min) 2 Oxygen Delivery Method Room Air Weight: 231 lb 5 oz Body Mass Index (BMI) 39.6 Intake and Output for Last 24 Hours 07/29/18 07/30/18 07/31/18 23:59 23:59 23:59 Intake Total 2370 / 2370 1777 / 1777 Output Total 1100 / 1100 2250 / 2250 Balance 1270 / 1270 -473 / -473 Microbiology Past 72 Hours 07/30/18 13:25 Respiratory Culture - Preliminary Sputum, Expectorated/Coughed Appears to be normal respiratory rashmi. Further studies to follow. 07/30/18 08:35 Urine Culture - Preliminary Urine, Clean Catch Culture exhibits no growth. 07/30/18 08:35 Streptococcus pneumoniae Antigen (M - Final Urine, Clean Catch 07/30/18 08:35 Legionella Antigen - Final Urine, Clean Catch Laboratory Tests Past 24 Hrs 07/30/18 07/30/18 07/30/18 09:50 12:20 15:54 WBC RBC Hgb Hct MCV MCH MCHC RDW RDW Differential Plt Count MPV Immature Gran % (Auto) Neut % (Auto) Lymph % (Auto) [place] % (Auto) Eos % (Auto) Baso % (Auto) Absolute Neuts (auto) Absolute Lymphs (auto) Total Counted Sodium Potassium Chloride Carbon Dioxide Anion Gap BUN Creatinine Estim Creat Clear Calc Est GFR (MDRD) Af Amer Est GFR (MDRD) Non-Af BUN/Creatinine Ratio Glucose Calcium Troponin I < 0.015 < 0.015 < 0.015 07/31/18 07/31/18 09:34 09:34 WBC 11.3 H RBC 4.18 L Hgb 11.7 L Hct 39.0 MCV 93.3 MCH 28.0 MCHC 30.0 L RDW 15.0 H RDW Differential 51.2 H Plt Count 226 MPV 9.5 Immature Gran % (Auto) 0.200 Neut % (Auto) 69.7 Lymph % (Auto) 23.0 [place] % (Auto) 4.2 Eos % (Auto) 2.5 Baso % (Auto) 0.4 Absolute Neuts (auto) 7.9 H Absolute Lymphs (auto) 2.59 Total Counted Not Reportable Sodium 138 Potassium 4.4 Chloride 108 H Carbon Dioxide 26.0 Anion Gap 4 L BUN 16 Creatinine 1.08 H Estim Creat Clear Calc 41.26 Est GFR (MDRD) Af Amer 64 Est GFR (MDRD) Non-Af 53 L BUN/Creatinine Ratio 14.8 Glucose 200 H Calcium 8.5 Troponin I POC Glucose 07/31/18 07/30/18 07/30/18 06:49 21:48 17:52 POC Glucose 124 H 142 H 101 07/30/18 13:26 POC Glucose 101 Medical Necessity - Tobacco Use Smoking Status: Former smoker Assessment/Plan This is a 73 years old female patient presented to the ED because of chest pain which is probably pleuritic with productive cough and subjective fever and chills and she was found to have a right upper lobe consolidation and probable left lower lobe infiltrate consistent with community-acquired pneumonia with sepsis and she is being admitted for treatment. #1 right lung community-acquired pneumonia/sepsis: She is on IV Levaquin. Her vital signs are stable, has been afebrile, white blood cell count is trending down. Symptoms improved, has been off oxygen. Pneumococcal and Legionella antigen are negative. Urine culture showed no growth. Preliminary sputum culture revealed normal respiratory rashmi, final is pending. Blood cultures pending. Plan to continue same treatment, possible DC home tomorrow. #2 chest pain: Likely pleuritic chest pain. EKG revealed sinus tachycardia, no acute ischemic changes. Troponin is negative x4. ACS ruled out. #3 type 2 diabetes mellitus: Blood sugar stable, plan for ADA diet, Accu-Cheks, insulin sliding scale, continue metformin. #4 COPD: Initially, she was hypoxic but improved. Plan for DuoNeb every 6 hours, albuterol as needed, oxygen if needed, chest physiotherapy. #5 stage III chronic kidney disease: Baseline creatinine has been around 1.3-1.6 mg/dL. Admission creatinine is 1.22,, today's creatinine is 1.08, improved. #6 GERD: Continue PPI. #7 DVT prophylaxis: Subcu Lovenox. This note was generated with [employer] dictation software. It may contain incorrect words, spelling, and punctuation that were not noted in checking the note before signing. Code Visit Inpatient E&M: 27010 Subs Hosp L2
--- NOTE | 2018-07-31 10:40 | CASEMGMT ---
RN DAVIS HYDRODYNAMICS TEACHER CM to room to meet with patient for initial transition planning/care coordination assessment. OLEG CANNON introduced self and role at [facility]. Pt voices understanding and consents to assessment at this time. Pt resting in bed in no distress at this time. Pt is A/O at this time and answers all questions appropriately. Care providers, pharmacy, and demographics verified at this time. PCP: Madhavi Specialists: Denies Preferred Pharmacy: [facility] Insurance: [employer] [facility] Prescription Benefit: Yes Living Will/HPOA: Pt has both LW and HCPOA, who is her , Jamar. Both found in e-chart Living Arrangements: Lives @ home with her . Independent. Works 2 part-time jobs. Transportation: Pt states drives self and states no transportation concerns at this time. DME:Denies using any DME and denies needs. HHC/SNF: Has never used HHC or been to a SNF. Pt wishes to return home and states has no concerns with going home at time of discharge. CM to follow for any further discharge planning/needs. Pt voices no further concerns/needs at this time. Advised pt to ask for CM if any further questions/concerns/needs arise. Voices understanding. PLAN: Home Cathy COVINGTON RN, CM
[2018-07-31 11:22] LABS: Bedside Glucose 137 mg/dL (70-110)
[2018-07-31 16:17] LABS: Bedside Glucose 146 mg/dL (70-110)
[2018-07-31] MEDS: Acetaminophen 325 MG Tablet 650 MG PO (18:21)
[2018-07-31] MEDS: Atorvastatin Calcium 10 MG Tablet 5 MG PO (22:43)
[2018-07-31] MEDS: Insulin Lispro 100 UNIT/ML INSULN.PEN SQ (22:46)
[2018-08-01 00:17] LABS: Bedside Glucose 153 mg/dL (70-110)
[2018-08-01 03:03] VITALS: BP 116/77; PULSE 86; RESP 20; TEMP 36.6; O2SAT 93
[2018-08-01 06:52] LABS: Bedside Glucose 130 mg/dL (70-110)
[2018-08-01] MEDS: Ipratropium/Albuterol Sulfate 3 ML AMPUL.NEB INHALATION (07:23)
[2018-08-01 07:24] VITALS: PULSE 77; RESP 18; O2SAT 93
[2018-08-01] MEDS: 0.9% NaCl Peripheral Flush Adult/Peds IV (08:21)
[2018-08-01] MEDS: levoFLOXacin IV 750 MG/150 ML BAG 100 MG IV (08:21)
[2018-08-01] MEDS: Enoxaparin 30 MG/0.3 ML Syringe SC (08:25)
[2018-08-01] MEDS: Lisinopril 5 MG Tablet PO (08:26)
[2018-08-01] MEDS: guaiFENesin 1,200 MG Tablet 1200 MG PO (08:26)
[2018-08-01] MEDS: Pantoprazole Sodium 20 MG Tablet PO (08:26)
[2018-08-01 08:36] VITALS: BP 142/94; PULSE 95; RESP 18; TEMP 37.1; O2SAT 95
[2018-08-01 08:49] VITALS: RESP 18; O2SAT 95
--- NOTE | 2018-08-01 10:09 | DCINST_ITS ---
You will use the following diet at home:: Calorie/Carbohydrate Controlled (specify 1200, 1400, etc) - 1800 jaspreet., Cardiac Your food should be the consistency of: Regular Discharge Activity: Return to Normal Activity Weight Bearing Status: Weight bearing as tolerated Call your doctor if you observe: Fever of 101 or Higher, Shortness of breath, Dizziness, Fainting spells, Chest pain, Increased palpitations (irregular heartbeat), Uncontrolled pain Instructions: Discharge Instructions for Pneumonia Allergies/Adverse Reactions: Allergies codeine Adverse Reaction (Verified 07/30/18 04:03) Other hydrocodone [From Vicodin] Adverse Reaction (Verified 07/30/18 04:03) Other Medications to take at Discharge Fluticasone/Salmeterol [Advair 500-50 Diskus] 1 each IH BID 07/24/17 Lisinopril [Zestril] 5 mg PO DAILY 07/24/17 Omeprazole 20 mg PO BID 07/24/17 Cyclobenzaprine [Flexeril] 10 mg PO TID PRN PRN 07/30/18 Metformin HCl [Metformin HCl ER] 1,000 mg PO QHS 07/30/18 Simvastatin 10 mg PO QHS 07/30/18 Levofloxacin [Levaquin] 750 mg PO DAILY #4 tablet 08/01/18 The following prescriptions were given: Levofloxacin [Levaquin] 750 mg PO DAILY #4 tablet Primary Care Physician: Kyara Hendrickson DO [Primary Care Provider] - Please follow up with your Primary Care Physician in: 1-2 weeks. Test Results: Test results from this visit will be discussed in further detail at your follow- up appointment, if applicable.
--- NOTE | 2018-08-01 14:31 | DS.PCM_ITS ---
Discharge Date and Diagnosis Date of Admission: 07/30/18 Date of Discharge: 08/01/18 - Primary Discharge Diagnosis #1 right lung community-acquired pneumonia. #2 sepsis. #3 pleuritic chest pain, attributed to pneumonia, ACS ruled out. - Secondary Discharge Diagnosis Chronic Problems CKD (chronic kidney disease) stage 3, GFR 30-59 ml/min (Chronic) History of tobacco use (Chronic) Obesity (BMI 30-39.9) (Chronic) GERD (gastroesophageal reflux disease) (Chronic) Diabetes mellitus, type II (Chronic) COPD (chronic obstructive pulmonary disease) (Chronic) Hospital Course and Treatment Imaging Results: Clinical Impression(s) from Imaging Studies Chest X-Ray 07/30/18 04:18 IMPRESSION: Right upper lobe density which has developed since the prior exam. Consider CT chest to exclude a mass. Electronically Signed: Martin Coughlin MD at 4:44 EST , Service support , Chest CTA 07/30/18 05:20 IMPRESSION: Right upper lobe and to a much lesser extent right lower lobe pneumonias. Recommend continued follow-up to resolution. Mild mediastinal lymphadenopathy. No pulmonary embolus or thoracic aortic dissection. Electronically Signed: Martin Coughlin MD at 6:19 EST , Service support , ADDENDUM: 07/30/18 0633 Operations: None Procedures: EKG Summary of Care Provided: Patient seen and examined on the day of discharge and appeared to be stable to be discharged home. She has been off oxygen, breathing stabilized. Still complaining of dry cough. Her vital signs are stable, afebrile. The patient is a 73 year old F admitted because of pleuritic chest pain with productive cough and subjective fever as well as chills and she was found to have a right upper lobe consolidation and probable right lower lobe infiltrate consistent with community-acquired pneumonia and sepsis. Her EKG revealed sinus tachycardia on admission without evidence of acute ischemic changes. Troponin was negative x4. She was treated with IV Levaquin. Pneumococcal and Legionella antigen were negative. Blood culture showed no growth in 48 hours. Sputum culture revealed normal respiratory rashmi. With antibiotic therapy and bronchodilators, her symptoms improved and she was able to come off oxygen. Patient did very well, remained afebrile for more than 48 hours. On the day of discharge, her pulse ox was 95% on room air. Patient discharged home in a stabl e medical condition, discharged on Levaquin 750 mg p.o. daily to complete 7 days of treatment, continued on her chronic home medication without any changes, recommended follow-up with PCP in 1-2 weeks. - Physical Exam General: Alert, Oriented x3, Cooperative, No apparent distress HEENT: Atraumatic, PERRLA, EOMI, Normocephalic Oral: Moist Mucosa, No Gingival or Mucosal Lesions/ Ulcerations Neck: Supple, No JVD, Negative Carotid Bruits, Trachea Midline, Thyroid Normal Size and Texture Lungs: Clear to auscultation, No rhonchi, No wheeze, No rales, Diminished Cardiovascular: Regular rate, Regular Rhythm, Normal S1, Normal S2, PMI Normal Abdomen: Bowel Sounds Present, Soft, Non Tender, Non-Distended, No Hepato- splenomegaly Extremities: No clubbing, No cyanosis, No edema Skin: No rashes, No breakdown Lymphatic: No Cervical, Supraclavicular, or Inguinal Adenopathy Neurological: Cranial nerves II-XII grossly intact, Neuro grossly intact Psych/Mental Status: Normal Affect, Appropriate Vital Signs Temp Pulse Resp BP Pulse Ox 98.7 F 95 18 142/94 H 95 08/01/18 08:36 08/01/18 08:36 08/01/18 08:49 08/01/18 08:36 08/01/18 08:49 Oxygen Flow Rate (L/min) 2 Oxygen Delivery Method Room Air Weight: 231 lb 4.238 oz Body Mass Index (BMI) 39.6 Intake and Output for Last 24 Hours 07/30/18 07/31/18 08/01/18 23:59 23:59 23:59 Intake Total 2370 / 2370 3703 / 3703 350 / 350 Output Total 1100 / 1100 2900 / 2900 Balance 1270 / 1270 803 / 803 350 / 350 Microbiology Past 72 Hours 07/30/18 08:54 Blood Culture - Preliminary Blood Culture (Wb) - Left Forearm No growth in 48 hours. 07/30/18 13:25 Gram Stain - Final Sputum, Expectorated/Coughed Respiratory Culture - Preliminary Appears to be normal respiratory rashmi. Further studies to follow. 07/30/18 08:35 Urine Culture - Final Urine, Clean Catch Mixed Gram Positive Organisms 07/30/18 08:35 Streptococcus pneumoniae Antigen (M - Final Urine, Clean Catch 07/30/18 08:35 Legionella Antigen - Final Urine, Clean Catch POC Glucose 08/01/18 07/31/18 07/31/18 06:44 22:45 16:11 POC Glucose 130 H 153 H 146 H Discharge Activity: Return to Normal Activity Weight Bearing Status: Weight bearing as tolerated Call your doctor if you observe: Fever of 101 or Higher, Shortness of breath, Dizziness, Fainting spells, Chest pain, Increased palpitations (irregular heartbeat), Uncontrolled pain Home Medications: Medications to take at Discharge Fluticasone/Salmeterol [Advair 500-50 Diskus] 1 each IH BID 07/24/17 Lisinopril [Zestril] 5 mg PO DAILY 07/24/17 Omeprazole 20 mg PO BID 07/24/17 Cyclobenzaprine [Flexeril] 10 mg PO TID PRN PRN 07/30/18 Metformin HCl [Metformin HCl ER] 1,000 mg PO QHS 07/30/18 Simvastatin 10 mg PO QHS 07/30/18 Levofloxacin [Levaquin] 750 mg PO DAILY #4 tablet 08/01/18 Following Prescrptions Were Given to Patient: Levofloxacin [Levaquin] 750 mg PO DAILY #4 tablet Primary Care Physician: Kyara Hendrickson DO [Primary Care Provider] - Please follow up with your Primary Care Physician in: 1-2 weeks. Patient Instructions: Discharge Instructions for Pneumonia Disposition: Home Minutes spent on discharge:: 26 Patient Condition:: Stable Medical Necessity - Tobacco Use Smoking Status: Former smoker Meaningful Use Info Meaningful Use Diagnoses (Choose all that apply): None applicable Code Visit Inpatient E&M: 15136 Disch Hosp
--- NOTE | 2018-08-03 15:34 | CASEMGMT ---
RN CM Discharge Follow-up Phone Call: VIOLET: 10 Strata: 3 Call Date: 08/03/18 Discharge Date: 08/01/18 Time of Call: 1534 Duration: 1 min Admitting Diagnosis: Community acquired pneumonia, sepsis, hypoxia RN DAVIS attempted to complete follow-up phone call after recent hospitalization. No answer, voice message left with return contact information.
== END 2018-08-01 11:00 | disposition home or self-care (01) | DRG 871 ==
LOC: ED 04:31 → MS3 07:45
PROVIDERS: Admitting Provider Hospitalist; Emergency Provider Emergency Medicine; Visit Provider Hospitalist
DX: A41.9 Sepsis, unspecified organism (principal); J18.9 Pneumonia, unspecified organism; R07.89 Other chest pain; E11.22 Type 2 diabetes mellitus with diabetic chronic kidney disease; N18.3 Chronic kidney disease, stage 3 (moderate); K21.9 Gastro-esophageal reflux disease without esophagitis; J44.9 Chronic obstructive pulmonary disease, unspecified; Z79.84 Long term (current) use of oral hypoglycemic drugs; Z79.899 Other long term (current) drug therapy; Z87.891 Personal history of nicotine dependence
CPT/HCPCS: 36415; 71046; 71275; 80048; 80076; 81002; 82962; 83605; 83690; 84484; 85025; 87040; 87070; 87086; 87088; 87205; 87449; 93005; 94640; 94668; 97161; 97165; 99284; J7030; Q9967; A4216